=== PATIENT | male | born 1965 | race African-American/Black ===

== ENCOUNTER 2019-10-12 09:34 | Emergency (ER) | payer MEDICAID ==
[~2019-10-12] VITALS: Ht 182.9 cm; Wt 75.0 kg
[~2019-10-12 09:34] MED LIST: NO MEDS
[2019-10-12] MEDS ORDERED: IBUPROFEN 400MG TABLET PO ONE (11:00)
[2019-10-12] MEDS ORDERED: TETANUS, DIPHTHERIA, PERTUSSIS VAC/PF 0.5ML (>7YR OLD) IM ONE (11:00)
[2019-10-12 12:30] VITALS: BP 133/79
== END 2019-10-12 12:32 | disposition home or self-care (01) ==
LOC: ER 09:42
DX: S90.31XA Contusion of right foot, initial encounter (principal); S91.331A Puncture wound without foreign body, right foot, initial encounter; W52.XXXA Crushed, pushed or stepped on by crowd or human stampede, initial encounter; Y93.89 Activity, other specified; Y92.89 Other specified places as the place of occurrence of the external cause; Y99.8 Other external cause status; Z90.49 Acquired absence of other specified parts of digestive tract; F17.210 Nicotine dependence, cigarettes, uncomplicated
CPT/HCPCS: 73630; 90471; 90715; 99283; Z7610